=== PATIENT | male | born 1980 ===

== ENCOUNTER 2017-05-01 08:16 | Day surgery (SDC) | payer OTHER ==
[2017-05-01] MEDS ORDERED: Lactated Ringer's 500 ML IV ONE (08:38)
[2017-05-01 08:50] VITALS: BMI 29.0
[2017-05-01] MEDS ORDERED: Propofol 10 mg/ml Inj (20 ML) ONE (10:34)
[2017-05-01] MEDS ORDERED: Midazolam 2 MG/2 ML VIAL ONE (10:34)
[2017-05-01 11:29] VITALS: BP 110/64; PULSE 78; RESP 18; TEMP 96.9; O2SAT 98
== END 2017-05-01 13:19 | disposition home or self-care (01) ==
LOC: H.ENDO 08:16
PROVIDERS: ATTEND Internal Medicine Gastroenterology
DX: R10.84 Generalized abdominal pain (principal); K64.8 Other hemorrhoids

== ENCOUNTER 2017-09-30 06:43 | Emergency (ER) | payer SELFPAY ==
[2017-09-30 06:44] VITALS: BMI 29.0
[2017-09-30 07:18] VITALS: BP 114/79; PULSE 65; RESP 19; TEMP 97.8; O2SAT 99
[2017-09-30] MEDS ORDERED: Iohexol 240 (50 ml) PO ONE (07:40)
[2017-09-30] MEDS ORDERED: Sodium Chloride 0.9% 1,000 ML IV STA (07:40)
[2017-09-30] MEDS ORDERED: Iohexol 240 (50 ml) ONE (07:46)
[2017-09-30 08:06] LABS: BASO % 0.4 % (0.0-2.0); EOS # 0.1 K/uL (0.0-0.7); EOS % 2.7 % (0.0-4.0); HEMOGLOBIN 15.1 g/dL (12.0-18.0); MEAN CELL VOLUME 89.9 fl (80.0-94.0); MEAN CORPUSCULAR HEMOGLOBIN 30.7 pg (27.0-31.0); MEAN CORPUSCULAR HGB CONC 34.1 g/dL (33.0-37.0); MEAN PLATELET VOLUME 8.4 fl (7.2-11.7); MONO # 0.5 K/uL (0.0-0.8); MONO % 9.3 % (0.0-10.0); NEUT # 2.4 K/uL (1.8-7.0); NEUT % 47.6 % (50.0-75.0); NRBC % 0.1 % (0.0-0.0); RBC 4.93 Mil/uL (4.40-5.90); RED CELL DISTRIBUTION WIDTH 12.7 % (11.5-14.5)
[2017-09-30 08:13] LABS: ALB/GLOB RATIO 1.3 (1.0-2.1); ALBUMIN 4.4 g/dL (3.5-5.0); ALT/SGPT 65 U/L (21-72); AST/SGOT 33 U/L (17-59); BLOOD UREA NITROGEN 18 mg/dl (9-20); CALCIUM 9.3 mg/dL (8.4-10.2); GFR AFRICAN-AMERICAN > 60; GFR NON-AFRICAN AMERICAN > 60; LIPASE 114 U/L (23-300)
--- NOTE | 2017-09-30 08:47 | ED PDOC ---
HPI: Abdomen Time Seen by Provider: 09/30/17 07:11 Chief Complaint (Nursing): Abdominal Pain Chief Complaint (Provider): Abdominal Pain History Per: Patient History/Exam Limitations: no limitations Onset/Duration Of Symptoms: Other (x1 year) Outside of [place] travel?: No Current Symptoms Are (Timing): Still Present Quality Of Discomfort: "Pain" Associated Symptoms: denies: Fever, Nausea, Vomiting, Diarrhea, Back Pain Exacerbating Factors: None Alleviating Factors: None Additional Complaint(s): 36 year old male presenting to the ED complaining of left sided abdominal pain x1 year. The patient states that this pain has worsened over the past week. He reports that he has taken no medications for pain. Denies nausea, vomiting, diarrhea, fever, back pain, testicular pain. Past Medical History Reviewed: Historical Data, Nursing Documentation, Vital Signs Vital Signs: Last Vital Signs Temp 97.8 F 09/30/17 07:13 Pulse 65 09/30/17 07:13 Resp 19 09/30/17 07:13 BP 114/79 09/30/17 07:13 Pulse Ox 99 09/30/17 09:00 - Medical History PMH: No Chronic Diseases - Surgical History Surgical History: Appendectomy - Family History Family History: States: Unknown Family Hx - Living Arrangements Living Arrangements: With Family - Social History Current smoker - smoking cessation education provided: No Ex-Smoker (has not smoked in the last 12 months): No Alcohol: Social Drugs: Denies - Home Medications Home Medications: Ambulatory Orders Medication Instructions Recorded No Known Home Med 05/01/17 - Allergies Allergies/Adverse Reactions: Allergies Allergy/AdvReac Type Severity Reaction Status Date / Time No Known Allergies Allergy Verified 05/01/17 08:50 Review of Systems ROS Statement: Except As Marked, All Systems Reviewed And Found Negative Constitutional: Negative for: Fever Gastrointestinal: Positive for: Abdominal Pain. Negative for: Nausea, Vomiting , Diarrhea Genitourinary Male: Positive for: Other (no testicular pain) Musculoskeletal: Negative for: Back Pain Physical Exam - Reviewed Nursing Documentation Reviewed: Yes Vital Signs Reviewed: Yes - Physical Exam Appears: Positive for: Non-toxic, No Acute Distress Skin: Positive for: Normal Color, Warm, Dry. Negative for: Rash Eye Exam: Positive for: Normal appearance, EOMI, PERRL. Negative for: Nystagmus ENT: Positive for: Normal ENT Inspection Neck: Positive for: Normal, Painless ROM, Supple Cardiovascular/Chest: Positive for: Regular Rate, Rhythm, Chest Non Tender. Negative for: Tachycardia Respiratory: Positive for: Normal Breath Sounds. Negative for: Wheezing, Respiratory Distress Gastrointestinal/Abdominal: Positive for: Bowel Sounds, Soft, Tenderness ( Tenderness to right upper and lower quadrants; Surgical scar on left side not consistent with appendectomy.). Negative for: Mass, Guarding, Rebound Back: Positive for: Normal Inspection. Negative for: L CVA Tenderness, R CVA Tenderness - Laboratory Results Result Diagrams: 09/30/17 07:50 09/30/17 07:50 Interpretation Of Abn Labs: no acute - ECG O2 Sat by Pulse Oximetry: 99 (RA) Pulse Ox Interpretation: Normal - CT Scan/US ct Other Rad Studies (CT/US): Read By Radiologist Other Rad Interpretation: no acute - Progress ED Course And Treament: 1225: Stable. AAOx3. Pain free. Tolerated PO. Fu with pcp. Medical Decision Making Medical Decision Makin Initial Impression 36 y/o male presenting with abdominal pain Initial Plan: * CT ABD Pelvis PO & IV Contrast * CMP * Lipase * Udip * CBC * NS 1000 ml IV 1000 mls/hr * Iohexol 50ml PO * Pepcid 20mg IVP * Toradol 15mg IVP * Reevaluation Documented by Rukhsana Chavez acting as a scribe for Bhavesh Mcmanus MD. All medical record entries made by the Scribe were at my direction and personally dictated by me. I have reviewed the chart and agree that the record accurately reflects my personal performance of the history, physical exam, medical decision making, and the department course for this patient. I have also personally directed, reviewed, and agree with the discharge instructions and disposition. Disposition - Clinical Impression Clinical Impression: Abdominal pain - Patient ED Disposition Is Patient to be Admitted: No - Disposition Referrals: [facility] [Outside] - 10/02/17 Disposition: Routine/Home Disposition Time: 12:26 Condition: STABLE Additional Instructions: Return if not better in 3 days. Instructions: Acute Abdominal Pain (ED) Print Language: MACEDONIAN
[2017-09-30] MEDS ORDERED: Sodium Chloride 0.9% 50 ML IV ONE (10:00)
[2017-09-30] MEDS ORDERED: Iohexol 300 100 ML IJ ONE (10:00)
--- NOTE | 2017-09-30 10:45 | CT ---
PROCEDURE: CT Abdomen and Pelvis with contrast HISTORY: abd pain, patient reports prior history of appendectomy COMPARISON: None. TECHNIQUE: Contrast dose: 90 cc omni 300 Radiation dose: Total exam DLP = 1153 mGy-cm. This CT exam was performed using one or more of the following dose reduction techniques: Automated exposure control, adjustment of the mA and/or kV according to patient size, and/or use of iterative reconstruction technique. FINDINGS: LOWER THORAX: Evaluation of the lung bases reveals no evidence of infiltrate or effusion. Visualized distal esophagus is unremarkable. No retrocrural adenopathy is seen. No pericardial effusion is noted. Visualized stomach is within normal limits. Duodenum is unremarkable LIVER: Liver is diffusely fatty infiltrated, without evidence of focal mass or intrahepatic ductal dilatation. GALLBLADDER AND BILE DUCTS: Unremarkable. PANCREAS: Unremarkable. No gross lesion or ductal dilatation. SPLEEN: Unremarkable. ADRENALS: Unremarkable. No mass. KIDNEYS AND URETERS: Unremarkable. No hydronephrosis. No solid mass. Tiny sub centimeter right renal cyst is noted. Tiny sub centimeter left renal cyst is seen. No renal calculus is identified. No perinephric changes are seen. VASCULATURE: Unremarkable. No aortic aneurysm. BOWEL: No small bowel dilatation is appreciated. No small bowel obstruction is noted. Visualized colon shows no evidence of bowel wall thickening or pericolonic inflammatory change to suggest colitis. Moderate residual fecal material within the sigmoid colon which extends towards the right lower quadrant region. Terminal ileum is within normal limits. Visualized cecum is unremarkable. No inflammatory changes are seen in the right lower quadrant. No free intraperitoneal air is identified. APPENDIX: Appendix appears to been previously removed. No right lower quadrant inflammatory changes are noted. PERITONEUM: No ascites is seen. No free air is seen. LYMPH NODES: No appreciable enlarged lymph nodes. A few tiny scattered shotty retroperitoneal lymph nodes are noted. No evidence of significant mesenteric adenopathy. No pelvic or inguinal adenopathy is seen. BLADDER: Bladder is decompressed limiting evaluation. No focal bladder wall thickening is seen. REPRODUCTIVE: Unremarkable. BONES: Mild degenerative changes are seen in the lower lumbar spine region. No compression fracture is seen. No lytic process is appreciated. Sacroiliac joints are unremarkable. Probable small bone island is seen in the left iliac bone region. OTHER FINDINGS: None. IMPRESSION: No appreciable acute inflammatory process in the abdomen or pelvis. No evidence of bowel obstruction or colitis. Nonspecific fatty infiltration of the liver. Unremarkable gallbladder and kidneys. No pancreatitis appreciated.
== END 2017-09-30 12:59 | disposition home or self-care (01) ==
LOC: SUPCPDRO 06:43 → H.ER 06:43
DX: R10.9 Unspecified abdominal pain (principal); Z90.49 Acquired absence of other specified parts of digestive tract; K76.0 Fatty (change of) liver, not elsewhere classified
CPT/HCPCS: 74177; 80053; 83690; 85025; 96374; 96375; 99283; J1885; J7040; Q9966; Q9967